=== PATIENT | female | born 1965 | race Caucasian/White ===

== ENCOUNTER 2024-10-08 13:29 | Outpatient (CLI) | payer BC ==
[2024-10-08 15:03] LABS: #Basophils 0.08 10x3/uL (0.0-0.2); #Eosinophils 0.34 10x3/uL (0.0-0.7); #Monocytes 1.18 10x3/uL (0.11-0.59); #Neutrophils 7.17 10x3/uL (1.40-6.50); %Basophils 0.7 % (0.0-1.0); %Eosinophils 3.0 % (0.0-10.0); %Lymphocytes 22.1 % (21.0-51.0); %Monocytes 10.5 % (0.0-10.0); %Neutrophils 63.4 % (42.0-75.0); Hematocrit 44.0 % (36.0-47.0); Hemoglobin 13.8 g/dL (12.0-16.0); Mean Corpuscular Hemoglobin 29.4 pg (27.0-31.0); Mean Corpuscular Volume 93.6 fL (78.0-98.0); Platelet Count 398 10x3/uL (130-400); Red Blood Cell (RBC) Count 4.70 mill/uL (4.20-5.40); White Blood Cell (WBC) Count 11.29 10x3/uL (4.8-10.8)
[2024-10-08 15:07] LABS: Bacteria/HPF 4+ HPF (None Seen); Glucose, Urine (Dipstick) Normal (Negative); Leukocyte 75 Leu/uL (Negative); Protein, Urine (Dipstick) 50 mg/dL (Neg-Trace); RBC/HPF 0-3 HPF (0-3); Specific Gravity, Urine 1.038 (1.002-1.036); WBC/HPF 21-50 HPF (0-3)
[2024-10-08 15:16] LABS: INR-International Normal Ratio 1.0; Prothrombin Time 13.5 sec (12.0-14.7)
[2024-10-08 15:42] LABS: Anion Gap 16 mmol/L (10-20); BUN (Urea Nitrogen) 13 mg/dL (9.8-20.1); Calc. Creatinine Clearance 0 mL/min (70-130); Calcium 9.6 mg/dL (7.8-10.44); Carbon Dioxide 25 mmol/L (23-31); Chloride 103 mmol/L (98-107); Glucose 110 mg/dL (80-115); Potassium 3.6 mmol/L (3.5-5.1); Sodium 140 mmol/L (136-145)
[2024-10-10 11:28] LABS: Glucose, Urine (Dipstick) Normal (Negative); Leukocyte Negative Leu/uL (Negative); Protein, Urine (Dipstick) Negative (Neg-Trace); RBC/HPF 0-3 HPF (0-3); Specific Gravity, Urine 1.021 (1.002-1.036); WBC/HPF 0-3 HPF (0-3)
[2024-10-10 11:33] LABS: Bacteria/HPF 1+ HPF (None Seen)
== END 2024-10-08 13:30 | disposition home or self-care (01) ==
LOC: LABBT 13:29
PROVIDERS: ATTEND Orthopaedic Surgery
DX: Z01.818 Encounter for other preprocedural examination (principal); M17.12 Unilateral primary osteoarthritis, left knee
CPT/HCPCS: 71046; 80048; 81001; 85025; 85610; 87081

== ENCOUNTER 2024-10-08 13:52 | Outpatient (CLI) | payer BC | END 2024-10-08 13:53 | disposition home or self-care (01) | LOC: CT 13:52 | PROVIDERS: ATTEND Orthopaedic Surgery | DX: M17.12 Unilateral primary osteoarthritis, left knee (principal); K40.20 Bilateral inguinal hernia, without obstruction or gangrene, not specified as recurrent; Z01.818 Encounter for other preprocedural examination | CPT/HCPCS: 71046; 80048; 81001; 85025; 85610; 87081 ==

== ENCOUNTER 2024-10-15 05:30 | Observation (INO) | payer BC ==
[2024-10-08 13:58] VITALS: BMI 36.0
[2024-10-15] MEDS ORDERED: Tranexamic Acid 1,000 MG/10 ML VIAL ONE ×2 (06:27→09:22)
[2024-10-15] MEDS ORDERED: Vancomycin HCl 1.5 GM VIAL ONE (06:27)
[2024-10-15] MEDS ORDERED: Ropivacaine 0.5% HCl/PF (150 MG/30 ML VIAL) ONE (06:35)
[2024-10-15] MEDS ORDERED: CEFAZOLIN 2 GM VIAL ONE (06:59)
[2024-10-15] MEDS ORDERED: PROPOFOL 20 ML ONE ×3 (07:01→08:15)
[2024-10-15] MEDS ORDERED: fentaNYL PF 100 MCG/2 ML SYRINGE ONE ×2 (07:01→08:58)
[2024-10-15] MEDS ORDERED: Ropivacaine 0.2% 550 ML 550 ML NERVE BLCK SCH (07:15)
[2024-10-15] MEDS ORDERED: HYDROcodone/Acetaminophen 10/325 mg Tablet PO PRN (07:15)
[2024-10-15] MEDS ORDERED: Ondansetron PF 4 MG/2 ML Vial IVP PRN ×2 (07:15→08:48)
[2024-10-15] MEDS ORDERED: Ondansetron PF 4 MG/2 ML Vial ONE (07:36)
[2024-10-15] MEDS ORDERED: Ketorolac Tromethamine 30 MG (1 mL) VIAL ONE ×2 (07:36→08:39)
[2024-10-15] MEDS ORDERED: Glycopyrrolate 0.2 MG/ML 5 ML SYRINGE ONE (07:50)
[2024-10-15] MEDS ORDERED: PHENYLEPHRINE-NS 100 MCG/ML 10 ML SYRINGE ONE (07:50)
[2024-10-15] MEDS ORDERED: diphenhydrAMINE 25 MG CAP PO PRN (08:48)
[2024-10-15] MEDS ORDERED: Acetaminophen 325 MG TAB PO PRN (08:48)
[2024-10-15] MEDS ORDERED: Non-Formulary Item 1 EACH (Cholecalciferol (Vitamin D3) [Vitamin D3] 5,000 UNITS Capsule) PO SCH (09:00)
[2024-10-15] MEDS ORDERED: ALPRAZolam 0.5 MG TAB PO SCH ×2 (09:00)
[2024-10-15] MEDS ORDERED: HYDROmorphone 0.5 MG/0.5 ML SYRINGE ONE (09:41)
[2024-10-15] MEDS: Ketorolac Tromethamine 30 MG (1 mL) VIAL IVP SCH (13:27)
[2024-10-15] MEDS: Aspirin 81 mg Enteric Coated Tablet PO SCH (13:30)
[2024-10-15] MEDS: Baclofen 10 MG TAB PO SCH (13:31)
[2024-10-15] MEDS: Ferrous Gluconate 324 MG TAB PO SCH (13:32)
[2024-10-15] MEDS: Cholecalciferol 1,000 UNITS (25 MCG) TAB PO SCH (13:32)
[2024-10-15] MEDS: Senokot S 8.6-50 MG TAB PO SCH (13:34)
[2024-10-15] MEDS: Multivitamin W/ Minerals 1 TAB PO SCH (13:34)
[2024-10-15 15:09] VITALS: BMI 36.0
[2024-10-15] MEDS ORDERED: Non-Formulary Item 1 EACH (Magnesium Oxide [Magnesium] 500 MG Capsule) PO SCH (21:00)
[2024-10-15] MEDS: HYDROcodone/Acetaminophen 10/325 mg Tablet PO PRN (21:55)
[2024-10-16 06:04] LABS: Hematocrit 34.2 % (36.0-47.0); Hemoglobin 10.6 g/dL (12.0-16.0); Mean Corpuscular Hemoglobin 29.0 pg (27.0-31.0); Mean Corpuscular Volume 93.7 fL (78.0-98.0); Platelet Count 276 10x3/uL (130-400); Red Blood Cell (RBC) Count 3.65 mill/uL (4.20-5.40); White Blood Cell (WBC) Count 17.91 10x3/uL (4.8-10.8)
[2024-10-16 07:54] VITALS: BP 121/74; TEMP 98
== END 2024-10-16 11:14 | disposition home or self-care (01) ==
LOC: SDC 05:30 → SURG A 10:38 → SDC 13:12
PROVIDERS: ADMIT Orthopaedic Surgery; ATTEND Orthopaedic Surgery
PROC: 0SRD0JZ Replacement of Left Knee Joint with Synthetic Substitute, Open Approach (ICD-10-PCS; principal; 2024-10-15)
PROC: 3E0T3BZ Introduction of Anesthetic Agent into Peripheral Nerves and Plexi, Percutaneous Approach (ICD-10-PCS; 2024-10-15)
DX: M17.12 Unilateral primary osteoarthritis, left knee (principal); I10 Essential (primary) hypertension; Z79.899 Other long term (current) drug therapy; Z96.651 Presence of right artificial knee joint; Z88.5 Allergy status to narcotic agent
CPT/HCPCS: 0055T; 27447; 64447; 36415; 85027; A4306; C1713; C1776; C1889; J0665; J1100; J1171; J1885; J2250; J2405; J2704; J2795; J3010; J7030